=== PATIENT | female | born 1960 | race Caucasian/White ===

== ENCOUNTER 2017-09-06 15:16 | Inpatient (IN) | payer OTHER, MEDICAID ==
[~2017-09-06] VITALS: Ht 162.6 cm; Wt 83.9 kg
[2017-09-06 17:45] VITALS: BP 136/99
[2017-09-06] MEDS ORDERED: TEMAZEPAM 7.5 MG CAPSULE PO PRN (18:30)
[2017-09-06] MEDS ORDERED: ACETAMINOPHEN 325 MG TABLET PO PRN (18:30)
[2017-09-06] MEDS ORDERED: MAGNESIUM HYDROXIDE 30 ML LIQUID UDC PO PRN (18:30)
[2017-09-06] MEDS ORDERED: MAG HYDROX/AL HYDROX/SIMETH 30 ML LIQUID UDC PO PRN (18:30)
[2017-09-06 20:17] VITALS: BP 135/74
[2017-09-06] MEDS ORDERED: LEVO50TA PO (20:34)
[2017-09-06] MEDS: LORAZEPAM 0.5 MG TABLET PO PRN (20:46)
[2017-09-06] MEDS ORDERED: IBUP-1957 PO (21:12)
[2017-09-06] MEDS ORDERED: IBUPROFEN 800 MG TABLET PO PRN (21:30)
[2017-09-06] MEDS: IBUPROFEN 400 MG TABLET PO PRN (23:09)
[2017-09-06] MEDS: ZOLPIDEM 5 MG TABLET PO PRN (23:09)
[2017-09-07] MEDS: LORAZEPAM 0.5 MG TABLET PO PRN (06:39)
[2017-09-07 07:30] VITALS: BP 126/79
[2017-09-07] MEDS ORDERED: LEVOTHYROXINE SODIUM 50 MCG TABLET PO SCH (07:30)
[2017-09-07] MEDS ORDERED: LORAZEPAM 0.5 MG TABLET PO PRN (09:00)
[2017-09-07] MEDS ORDERED: LORAZEPAM 1 MG TABLET PO PRN (09:00)
[2017-09-07] MEDS: TOPIRAMATE 25 MG TABLET PO SCH ×2 (09:30→20:12)
[2017-09-07] MEDS: ARIPIPRAZOLE 2 MG TABLET PO SCH (09:30)
[2017-09-07] MEDS: IBUPROFEN 400 MG TABLET PO PRN (13:38)
[2017-09-07 17:00] VITALS: BP 141/141
[2017-09-07 20:16] VITALS: BP 151/86
[2017-09-07] MEDS: ZOLPIDEM 5 MG TABLET PO PRN (21:14)
[2017-09-08] MEDS: LEVOTHYROXINE SODIUM 50 MCG TABLET PO SCH (06:16)
[2017-09-08 07:30] VITALS: BP 157/83
[2017-09-08] MEDS: ARIPIPRAZOLE 2 MG TABLET PO SCH (08:24)
[2017-09-08] MEDS: TOPIRAMATE 25 MG TABLET PO SCH ×2 (08:24→20:25)
[2017-09-08] MEDS: IBUPROFEN 400 MG TABLET PO PRN (11:08)
[2017-09-08] MEDS: HYDROXYZINE PAMOATE 25 MG CAPSULE PO PRN (14:24)
[2017-09-08 16:11] VITALS: BP 145/79
[2017-09-08] MEDS: NEOMY/BACITRAC/POLYMI OINT 28.35 GM TUBE TOP SCH (18:41)
[2017-09-08 20:20] VITALS: BP 152/86
[2017-09-08] MEDS: ZOLPIDEM 5 MG TABLET PO PRN (22:01)
[2017-09-09] MEDS: LEVOTHYROXINE SODIUM 50 MCG TABLET PO SCH (06:37)
[2017-09-09 07:30] VITALS: BP 138/87
[2017-09-09] MEDS: ARIPIPRAZOLE 2 MG TABLET PO SCH (08:43)
[2017-09-09] MEDS: TOPIRAMATE 25 MG TABLET PO SCH ×2 (08:44→20:23)
[2017-09-09] MEDS: NEOMY/BACITRAC/POLYMI OINT 28.35 GM TUBE TOP SCH (08:48)
[2017-09-09] MEDS: HYDROXYZINE PAMOATE 25 MG CAPSULE PO PRN ×3 (10:18→23:58)
[2017-09-09] MEDS: IBUPROFEN 400 MG TABLET PO PRN (13:42)
[2017-09-09] MEDS ORDERED: TDAP DIPH,PERTUSS,TET VAC/PF 0.5 ML DISP.SYRIN IM ONE (13:45)
[2017-09-09 15:17] VITALS: BP_SYST 105; BP_SYST 141; BP_DIAS 48; BP_DIAS 79
[2017-09-09 20:31] VITALS: BP 137/72
[2017-09-09] MEDS: ZOLPIDEM 5 MG TABLET PO PRN (21:40)
[2017-09-10] MEDS: IBUPROFEN 400 MG TABLET PO PRN ×2 (03:44→15:08)
[2017-09-10] MEDS: LEVOTHYROXINE SODIUM 50 MCG TABLET PO SCH (06:13)
[2017-09-10 07:30] VITALS: BP 128/81
[2017-09-10] MEDS ORDERED: ARIPIPRAZOLE 5 MG TABLET PO SCH ×2 (09:00)
[2017-09-10] MEDS ORDERED: ARIPIPRAZOLE 2 MG TABLET PO SCH (09:00)
[2017-09-10] MEDS: NEOMY/BACITRAC/POLYMI OINT 28.35 GM TUBE TOP SCH (09:41)
[2017-09-10] MEDS: ARIPIPRAZOLE 10 MG TABLET PO SCH (09:41)
[2017-09-10] MEDS: TOPIRAMATE 25 MG TABLET PO SCH ×2 (09:41→20:09)
[2017-09-10 15:53] VITALS: BP 135/80
[2017-09-10] MEDS: HYDROXYZINE PAMOATE 25 MG CAPSULE PO PRN (18:28)
[2017-09-10 20:55] VITALS: BP 138/79
[2017-09-10] MEDS: ZOLPIDEM 5 MG TABLET PO PRN (21:50)
[2017-09-11] MEDS: HYDROXYZINE PAMOATE 25 MG CAPSULE PO PRN ×3 (00:02→13:14)
[2017-09-11] MEDS: IBUPROFEN 400 MG TABLET PO PRN ×3 (03:54→18:54)
[2017-09-11] MEDS: LEVOTHYROXINE SODIUM 50 MCG TABLET PO SCH (06:31)
[2017-09-11 07:30] VITALS: BP 122/80
[2017-09-11] MEDS: NEOMY/BACITRAC/POLYMI OINT 28.35 GM TUBE TOP SCH (08:31)
[2017-09-11] MEDS: TOPIRAMATE 25 MG TABLET PO SCH ×2 (08:31→20:18)
[2017-09-11] MEDS: ARIPIPRAZOLE 10 MG TABLET PO SCH (08:31)
[2017-09-11] MEDS ORDERED: VITAMIN E CREAM 56.7 GM JAR TP PRN (12:00)
[2017-09-11 15:33] VITALS: BP 122/76
[2017-09-11 20:04] VITALS: BP 132/90
[2017-09-11] MEDS: ZOLPIDEM 5 MG TABLET PO PRN (20:54)
[2017-09-12] MEDS: HYDROXYZINE PAMOATE 25 MG CAPSULE PO PRN ×2 (02:50→10:47)
[2017-09-12] MEDS: IBUPROFEN 400 MG TABLET PO PRN ×2 (02:50→12:12)
[2017-09-12] MEDS: LEVOTHYROXINE SODIUM 50 MCG TABLET PO SCH (06:16)
[2017-09-12 07:30] VITALS: BP 155/92
[2017-09-12] MEDS: ARIPIPRAZOLE 10 MG TABLET PO SCH (08:17)
[2017-09-12] MEDS: TOPIRAMATE 25 MG TABLET PO SCH ×2 (08:17→20:03)
[2017-09-12] MEDS: NEOMY/BACITRAC/POLYMI OINT 28.35 GM TUBE TOP SCH (09:06)
[2017-09-12 15:43] VITALS: BP 136/83
[2017-09-12 20:15] VITALS: BP 142/85
[2017-09-12] MEDS: ZOLPIDEM 5 MG TABLET PO PRN (21:24)
[2017-09-13] MEDS: HYDROXYZINE PAMOATE 25 MG CAPSULE PO PRN ×2 (04:56→14:18)
[2017-09-13] MEDS: LEVOTHYROXINE SODIUM 50 MCG TABLET PO SCH (06:02)
[2017-09-13 07:30] VITALS: BP 150/84
[2017-09-13] MEDS ORDERED: ARIPIPRAZOLE 10 MG TABLET PO SCH (09:00)
[2017-09-13] MEDS ORDERED: ARIPIPRAZOLE 5 MG TABLET PO SCH (09:00)
[2017-09-13] MEDS: ARIPIPRAZOLE 5 MG TABLET PO SCH (09:01)
[2017-09-13] MEDS: NEOMY/BACITRAC/POLYMI OINT 28.35 GM TUBE TOP SCH (09:02)
[2017-09-13] MEDS: TOPIRAMATE 25 MG TABLET PO SCH (09:02)
[2017-09-13] MEDS: IBUPROFEN 400 MG TABLET PO PRN ×2 (12:38→18:34)
[2017-09-13 17:08] VITALS: BP 146/86
[2017-09-13 19:53] VITALS: BP 154/88
[2017-09-13] MEDS ORDERED: TOPIRAMATE 100 MG TABLET PO SCH (21:00)
[2017-09-13] MEDS: ZOLPIDEM 5 MG TABLET PO PRN (21:16)
[2017-09-14] MEDS: HYDROXYZINE PAMOATE 25 MG CAPSULE PO PRN (00:26)
[2017-09-14] MEDS: LEVOTHYROXINE SODIUM 50 MCG TABLET PO SCH (06:07)
[2017-09-14 07:30] VITALS: BP 144/76
[2017-09-14] MEDS: TOPIRAMATE 25 MG TABLET PO SCH (08:01)
[2017-09-14] MEDS: ARIPIPRAZOLE 5 MG TABLET PO SCH (08:01)
[2017-09-14] MEDS: NEOMY/BACITRAC/POLYMI OINT 28.35 GM TUBE TOP SCH (08:08)
[2017-09-14] MEDS: IBUPROFEN 400 MG TABLET PO PRN (09:27)
== END 2017-09-14 13:00 | disposition home or self-care (01) | DRG 885 ==
LOC: ER 15:19 → GPS 17:37
PROVIDERS: ADMIT Psychiatry & Neurology Psychiatry; ATTEND Internal Medicine
DX: F31.2 Bipolar disorder, current episode manic severe with psychotic features (principal); Z88.1 Allergy status to other antibiotic agents; Z88.0 Allergy status to penicillin; Z88.2 Allergy status to sulfonamides; E03.9 Hypothyroidism, unspecified; F20.9 Schizophrenia, unspecified; R60.0 Localized edema; F41.9 Anxiety disorder, unspecified; S60.221A Contusion of right hand, initial encounter; X58.XXXA Exposure to other specified factors, initial encounter; Y92.89 Other specified places as the place of occurrence of the external cause; Z79.899 Other long term (current) drug therapy
CPT/HCPCS: 36415; 73120; 84443; 90715; 93307; A4663